=== PATIENT | female | born 1980 | race Caucasian/White ===

== ENCOUNTER 2020-09-23 19:01 | Emergency (ER) | payer MEDICAID ==
--- NOTE | 2020-09-23 19:25 | EDM.PDOC ---
ED HPI GENERAL MEDICAL PROBLEM - General Chief Complaint: Neurological Problem Stated Complaint: SHARP POP IN HEAD THEN BLURRY VISION AND HEADACHE Time Seen by Provider: 09/23/20 19:11 Source of Information: Reports: Patient History Limitations: Reports: No Limitations - History of Present Illness INITIAL COMMENTS - FREE TEXT/NARRATIVE: This is a 40-year-old female. She was eating tonight about 30 minutes ago when she felt a sudden pop and pain in the right posterior parietal area. She developed a headache in that area that seem to expand into her forehead and she developed some blurry vision in the right eye. She also felt like it was neck stiffness and some tingling in her right upper extremity. She denies any weakness of her extremities and she has full function of her hands. She denies any dizziness or vertigo or imbalance when she was walking. The headache itself and in the pain in the right parietal area has eased up but has not gone away. She says her mother has a history of strokes but there is no history of aneurysms. She is on no blood thinners and does not take baby aspirin. She is completely alert and oriented and very expressive in her talking with movement of her arms and hands. She is very attentive with no word searching. She has good sentence structure and is able to express herself adequately. Right Occipital Head Pain Score (Numeric/FACES): 5 - Related Data Allergies Allergy/AdvReac Type Severity Reaction Status Date / Time guaifenesin [From Robitussin] Allergy Hives Verified 09/23/20 19:22 Home Meds: Home Meds Celecoxib [CeleBREX] 200 mg PO DAILY 09/23/20 [History] Escitalopram [Lexapro] 20 mg PO DAILY 09/23/20 [History] Hydroxychloroquine [Plaquenil] 200 mg PO BID 09/23/20 [History] buPROPion HCL [Bupropion Xl] 300 mg PO DAILY 09/23/20 [History] methylPREDNISolone [Methylprednisolone] 4 mg PO DAILY 09/23/20 [History] ED ROS GENERAL - Review of Systems Review Of Systems: See Below Constitutional: Denies: Fever, Chills HEENT: Reports: No Symptoms Respiratory: Denies: Shortness of Breath, Cough Cardiovascular: Denies: Chest Pain Endocrine: Reports: No Symptoms GI/Abdominal: Denies: Nausea, Vomiting : Reports: No Symptoms Musculoskeletal: Reports: Neck Pain Skin: Reports: No Symptoms Neurological: Reports: Headache, Tingling. Denies: Confusion, Dizziness, Syncope, Trouble Speaking, Difficulty Walking, Weakness, Change in Speech Psychiatric: Reports: No Symptoms Hematologic/Lymphatic: Reports: No Symptoms ED EXAM, NEURO - Physical Exam Exam: See Below Exam Limited By: No Limitations General Appearance: Alert, WD/WN, No Apparent Distress, Other (She is minimally anxious) Eye Exam: Bilateral Eye: Normal Inspection, PERRL Ears: Normal External Exam Nose: Normal Inspection Throat/Mouth: Normal Inspection, Normal Lips, Normal Voice, No Airway Compromise Head Exam: Normocephalic, Other (I palpate where her lesser occipital nerve comes out of the base of the skull and where the easiest muscles attach to the skull she has point tenderness right there where she states she has a headache. She does complain of some discomfort up into her forehead but that seems to be easing up some. She also complains of some neck tightness and muscle tightness.) Neck: Supple, Other (Have some tenderness in the trapezius muscle on the right side. But there are no spasms noted and no midline spine pain.) Respiratory/Chest: No Respiratory Distress, Lungs Clear, Normal Breath Sounds Cardiovascular: Regular Rate, Rhythm, No Murmur GI/Abdominal: Soft Neurological: Alert, Normal Mood/Affect, Normal Gait, Oriented x 3. No: Ataxia, Tremor Back Exam: Full Range of Motion Extremities: Normal Inspection, Normal Range of Motion, Other (He moves her right upper extremity with no difficulty. There is no pronator drift and she has good bilateral manager chemistry that are symmetrical. She does complain of some tingling in right arm in general but she still has feeling.) Psychiatric: Anxious Skin Exam: Warm, Dry Course - Vital Signs Last Recorded V/S: Last Vital Signs Temp 97.2 F 09/23/20 19:11 Pulse 91 09/23/20 19:11 Resp 16 09/23/20 19:11 BP 109/64 09/23/20 19:11 Pulse Ox - Orders/Labs/Meds Orders: Active Orders 24 hr Category Date Time Status Head wo Cont [CT] Stat Exams 09/23/20 19:18 Taken Labs: Laboratory Tests 09/23/20 09/23/20 09/23/20 Range/Units 19:37 19:37 19:37 WBC 9.32 (3.98-10.04) K/mm3 RBC 4.73 (3.98-5.22) M/mm3 Hgb 14.8 (11.2-15.7) gm/dl Hct 43.0 (34.1-44.9) % MCV 90.9 (79.4-94.8) fl MCH 31.3 (25.6-32.2) pg MCHC 34.4 (32.2-35.5) g/dl RDW Std Deviation 40.8 (36.4-46.3) fL Plt Count 61 L (182-369) K/mm3 MPV 9.3 L (9.4-12.3) fl Neut % (Auto) 67.0 (34.0-71.1) % Lymph % (Auto) 25.6 (19.3-51.7) % [place] % (Auto) 5.4 (4.7-12.5) % Eos % (Auto) 1.2 (0.7-5.8) Baso % (Auto) 0.4 (0.1-1.2) % Neut # (Auto) 6.24 H (1.56-6.13) K/mm3 Lymph # (Auto) 2.39 (1.18-3.74) K/mm3 [place] # (Auto) 0.50 H (0.24-0.36) K/mm3 Eos # (Auto) 0.11 (0.04-0.36) K/mm3 Baso # (Auto) 0.04 (0.01-0.08) K/mm3 Manual Slide Review Abnormal smear PT 10.3 (9.7-12.0) SECONDS INR 0.96 Sodium 141 (136-145) mEq/L Potassium 3.7 (3.5-5.1) mEq/L Chloride 106 (98-107) mEq/L Carbon Dioxide 24 (21-32) mEq/L Anion Gap 14.7 (5-15) BUN 12 (7-18) mg/dL Creatinine 0.8 (0.55-1.02) mg/dL Est Cr Clr Drug Dosing 96.18 mL/min Estimated GFR (MDRD) > 60 (>60) mL/min BUN/Creatinine Ratio 15.0 (14-18) Glucose 123 H (74-106) mg/dL Calcium 8.9 (8.5-10.1) mg/dL Total Bilirubin 0.3 (0.2-1.0) mg/dL AST 21 (15-37) U/L ALT 33 (14-59) U/L Alkaline Phosphatase 64 (46-116) U/L Total Protein 7.2 (6.4-8.2) g/dl Albumin 3.8 (3.4-5.0) g/dl Globulin 3.4 gm/dL Albumin/Globulin Ratio 1.1 (1-2) - Re-Assessments/Exams Free Text/Narrative Re-Assessment/Exam: 09/23/20 20:33 To the patient regarding her lab work and she is known to have low platelets and today her platelets were 61,000 but she has a history of lupus and she is on steroids. I encouraged her to follow-up with her family doctor to make sure that they are comfortable with the platelets of 61,000. I also spoke to her regarding her CT scan that did not show any acute intracranial pathology. I believe this is coming from her greater occipital nerve irritation. 09/23/20 20:36 The patient tells me that her symptoms are easing up and the pain she was having on the right side of her head is turning more into a mild headache. The tingling in her right arm is improving though she says her arm still feels kind of funny and may be slightly heavy. Overall she says her symptoms are improving. Departure - Departure Time of Disposition: 20:34 Disposition: Home, Self-Care 01 Condition: Good Clinical Impression: Occipital neuralgia of right side, Occipital neuritis - Discharge Information *PRESCRIPTION DRUG MONITORING PROGRAM REVIEWED*: Not Applicable *COPY OF PRESCRIPTION DRUG MONITORING REPORT IN PATIENT JERO: Not Applicable Instructions: Occipital Neuralgia Referrals: Carolina Nazario MD [Primary Care Provider] - Forms: ED Department Discharge Additional Instructions: Compress to help with the irritation, also gentle massage to that area sometimes will ease it up, if you find you are getting a lot of muscle tightness use the muscle relaxer as needed to help with the neck and muscle tightness. Follow-up with your family doctor this week for recheck and if there is a sudden change or worsening of your symptoms return to the ER Sepsis Event Note (ED) - Focused Exam Vital Signs: Vital Signs Temp Pulse Resp BP 09/23/20 19:11 97.2 F 91 16 109/64 - My Orders Last 24 Hours: My Active Orders 09/23/20 19:18 Head wo Cont [CT] Stat - Assessment/Plan Last 24 Hours: My Active Orders 09/23/20 19:18 Head wo Cont [CT] Stat
--- NOTE | 2020-09-24 20:18 | CT ---
Head CT Technique: Multiple axial sections through the brain were obtained. Intravenous contrast was not utilized. Comparison: No prior intracranial imaging is available. Findings: Ventricles along with basal cisterns and sulci over the convexities are within normal limits for the patient's age. No abnormal parenchymal densities are seen. No evidence of intracranial hemorrhage. No midline shift or mass-effect is seen. Bone window settings were reviewed. Visualized mastoid sinuses and paranasal sinuses show nothing acute. No acute calvarial abnormality is appreciated. Impression: 1. Nothing acute is identified on noncontrast head CT exam. Diagnostic code #1 I agree with preliminary report from 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
== END 2020-09-23 20:44 | disposition home or self-care (01) ==
LOC: JD.ED 19:01
DX: M54.81 Occipital neuralgia (principal); M32.9 Systemic lupus erythematosus, unspecified; Z88.8 Allergy status to other drugs, medicaments and biological substances; Z79.899 Other long term (current) drug therapy
CPT/HCPCS: 36415; 70450; 70450-26; 80053; 85025; 85610; 99284; 99284-25

== ENCOUNTER 2020-12-13 18:06 | Emergency (ER) | payer MEDICAID ==
[2020-12-13] MEDS ORDERED: Adenosine 12 MG/4 ML SDV ONE (18:20)
[2020-12-13] MEDS ORDERED: Adenosine 6 MG/2 ML SDV ONE (18:20)
[2020-12-13] MEDS ORDERED: Sodium Chloride 0.9% 1,000 ML ONE (18:21)
[2020-12-13] MEDS ORDERED: Adenosine 6 MG/2 ML SDV IVPUSH ONE ×2 (18:30→18:31)
[2020-12-13] MEDS ORDERED: Sodium Chloride 0.9% 1,000 ML IV ONE (18:30)
--- NOTE | 2020-12-13 18:43 | EDM.PDOC ---
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 She has never had anything like this before. Her chest does feel mildly tight, she feels anxious. Not short of breath. Has not been recently ill. Chest Pain Score (Numeric/FACES): 9 - Related Data Allergies Allergy/AdvReac Type Severity Reaction Status Date / Time guaifenesin [From Robitussin] Allergy Severe Hives Verified 12/13/20 18:37 Home Meds: Home Meds Escitalopram [Lexapro] 20 mg PO DAILY 09/23/20 [History] Hydroxychloroquine [Plaquenil] 200 mg PO BID 09/23/20 [History] buPROPion HCL [Bupropion Xl] 300 mg PO DAILY 09/23/20 [History] methylPREDNISolone [Methylprednisolone] 4 mg PO DAILY 09/23/20 [History] Cholecalciferol (Vitamin D3) [Vitamin D] 5,000 unit PO DAILY 12/13/20 [History] Multivitamin [Multivitamins] 1 each PO DAILY 12/13/20 [History] Past Medical History HEENT History: Reports: Impaired Vision Respiratory History: Reports: Other (See Below) Other Respiratory History: reoccurring cough. Musculoskeletal History: Reports: Arthritis, Back Pain, Chronic Neurological History: Reports: Migraines Psychiatric History: Reports: Anxiety, Depression Immunologic History: Reports: Immunosuppression, Other (See Below) Other Immunologic History: Lupus--sees physician at [facility] in [place]. - Infectious Disease History Infectious Disease History: Reports: Influenza - Past Surgical History HEENT Surgical History: Reports: Oral Surgery Social & Family History - Family History Cardiac: Reports: Other (See Below) Other Cardiac Family History: stroke - Caffeine Use Caffeine Use: Reports: Soda ED ROS GENERAL - Review of Systems Review Of Systems: See Below Constitutional: Denies: Fever, Chills, Diaphoresis HEENT: Reports: No Symptoms Respiratory: Denies: Shortness of Breath, Pleuritic Chest Pain, Cough Cardiovascular: Reports: Lightheadedness, Palpitations. Denies: Chest Pain GI/Abdominal: Denies: Abdominal Pain, Nausea, Vomiting Musculoskeletal: Denies: Neck Pain, Shoulder Pain, Back Pain Skin: Denies: Rash Neurological: Reports: Dizziness ED EXAM, GENERAL - Physical Exam Exam: See Below General Appearance: Alert, Anxious Head: Atraumatic Neck: Supple Respiratory/Chest: No Respiratory Distress, Lungs Clear, Normal Breath Sounds Cardiovascular: Tachycardia (fast, regular heart tones) GI/Abdominal: Non-Tender Extremities: Normal Inspection. No: Pedal Edema, Leg Pain Neurological: Alert, Oriented, No Motor/Sensory Deficits Skin Exam: Warm, Dry, Normal Color #2 Interpretation EKG Date: 12/13/20 Rhythm: Other (SVT, rate 171) [place]: Normal P-Wave: Absent QRS: Normal ST-T: Other (very mild nonspecific t wave changes multiple leads) Course - Vital Signs Last Recorded V/S: Last Vital Signs Temp 97.4 F 12/13/20 18:19 Pulse 91 12/13/20 18:45 Resp 16 12/13/20 18:45 BP 121/83 12/13/20 18:45 Pulse Ox 97 12/13/20 18:45 - Orders/Labs/Meds Orders: Active Orders 24 hr Category Date Time Status EKG 12 Lead [EKG Documentation Completion] [RC] DAILY Care 12/13/20 18:15 Active EKG 12 Lead [EKG Documentation Completion] [RC] ONETIME Care 12/13/20 18:32 Active Sodium Chloride 0.9% [Normal Saline] 1,000 ml Med 12/13/20 18:30 Active IV ONETIME Medication Orders Sodium Chloride (Normal Saline) 1,000 mls @ 999 mls/hr IV ONETIME ONE Stop: 12/13/20 19:30 Last Admin: 12/13/20 18:30 Dose: 999 mls/hr Documented by: KE Labs: Laboratory Tests 12/13/20 12/13/20 Range/Units 18:25 18:25 WBC 11.53 H (3.98-10.04) K/mm3 RBC 4.67 (3.98-5.22) M/mm3 Hgb 14.5 (11.2-15.7) gm/dl Hct 42.2 (34.1-44.9) % MCV 90.4 (79.4-94.8) fl MCH 31.0 (25.6-32.2) pg MCHC 34.4 (32.2-35.5) g/dl RDW Std Deviation 41.2 (36.4-46.3) fL Plt Count 249 D (182-369) K/mm3 MPV 9.6 (9.4-12.3) fl Neut % (Auto) 77.9 H (34.0-71.1) % Lymph % (Auto) 17.3 L (19.3-51.7) % [place] % (Auto) 4.2 L (4.7-12.5) % Eos % (Auto) 0.2 L (0.7-5.8) Baso % (Auto) 0.3 (0.1-1.2) % Neut # (Auto) 8.98 H (1.56-6.13) K/mm3 Lymph # (Auto) 2.00 (1.18-3.74) K/mm3 [place] # (Auto) 0.49 H (0.24-0.36) K/mm3 Eos # (Auto) 0.02 L (0.04-0.36) K/mm3 Baso # (Auto) 0.03 (0.01-0.08) K/mm3 Manual Slide Review Normal smear Sodium 142 (136-145) mEq/L Potassium 3.9 (3.5-5.1) mEq/L Chloride 104 (98-107) mEq/L Carbon Dioxide 22 (21-32) mEq/L Anion Gap 19.9 H (5-15) BUN 11 (7-18) mg/dL Creatinine 1.1 H (0.55-1.02) mg/dL Est Cr Clr Drug Dosing 69.95 mL/min Estimated GFR (MDRD) 56 (>60) mL/min BUN/Creatinine Ratio 10.0 L (14-18) Glucose 138 H (74-106) mg/dL Calcium 9.3 (8.5-10.1) mg/dL Total Bilirubin 0.3 (0.2-1.0) mg/dL AST 14 L (15-37) U/L ALT 32 (14-59) U/L Alkaline Phosphatase 62 (46-116) U/L Total Protein 7.2 (6.4-8.2) g/dl Albumin 3.7 (3.4-5.0) g/dl Globulin 3.5 gm/dL Albumin/Globulin Ratio 1.1 (1-2) Meds: Medications Generic Name Dose Route Start Last Admin Trade Name Carol PRN Reason Stop Dose Admin Sodium Chloride 1,000 mls @ 999 mls/hr 12/13/20 18:30 12/13/20 18:30 Normal Saline IV 12/13/20 19:30 999 mls/hr ONETIME ONE Administration Discontinued Medications Generic Name Dose Route Start Last Admin Trade Name Carol PRN Reason Stop Dose Admin Adenosine Confirm 12/13/20 18:20 12/13/20 18:43 Adenosine 6 Mg/2 Ml Sdv Administered 12/13/20 18:21 Not Given Dose 6 mg .ROUTE .STK-MED ONE Adenosine Confirm 12/13/20 18:20 12/13/20 18:43 Adenosine 12 Mg/4 Ml Sdv Administered 12/13/20 18:21 Not Given Dose 12 mg .ROUTE .STK-MED ONE Adenosine 6 mg 12/13/20 18:30 12/13/20 18:30 Adenosine 6 Mg/2 Ml Sdv IVPUSH 12/13/20 18:31 6 mg NOW ONE Administration Adenosine 12 mg 12/13/20 18:31 12/13/20 18:31 Adenosine 6 Mg/2 Ml Sdv IVPUSH 12/13/20 18:32 12 mg NOW ONE Administration Sodium Chloride Confirm 12/13/20 18:21 12/13/20 18:43 Normal Saline Administered 12/13/20 18:22 Not Given Dose 1,000 mls @ as directed .ROUTE .STK-MED ONE - Re-Assessments/Exams Free Text/Narrative Re-Assessment/Exam: 12/13/20 18:42. tried valsalva, that did slow her rate a bit but did not convert her. Adenosine 6 mg IV did the same. With Adenosine 12 mg IV converted to NSR, Rate 110 that rapidly came down to the low 90's. 12/13/20 18:45. Repeat EKG. NSR, rate 101. Narrow complex, no acute changes. 12/13/20 19:28. Resting comfortably, no reoccurance of sx. labs showed mild dehydration, have given 1 liter of fluid. Discharge instr. as documented. Departure - Departure Time of Disposition: 19:29 Disposition: Home, Self-Care 01 Condition: Fair Clinical Impression: SVT (supraventricular tachycardia) Referrals: Carolina Nazario MD [Primary Care Provider] - Forms: ED Department Discharge Additional Instructions: Rest, drink plenty of water this evening and tomorrow. Continue current medications. See Dr Trevino in 1 to 2 weeks or next available appt. Return to ED as needed. Sepsis Event Note (ED) - Evaluation Sepsis Screening Result: No Definite Risk - Focused Exam Vital Signs: Vital Signs Temp Pulse Resp BP Pulse Ox 12/13/20 18:45 91 16 121/83 97 12/13/20 18:19 97.4 F 176 H 18 138/116 H 100 - My Orders Last 24 Hours: My Active Orders 12/13/20 18:15 EKG 12 Lead [EKG Documentation Completion] [RC] DAILY 12/13/20 18:30 Sodium Chloride 0.9% [Normal Saline] 1,000 ml IV ONETIME 12/13/20 18:32 EKG 12 Lead [EKG Documentation Completion] [RC] ONETIME - Assessment/Plan Last 24 Hours: My Active Orders 12/13/20 18:15 EKG 12 Lead [EKG Documentation Completion] [RC] DAILY 12/13/20 18:30 Sodium Chloride 0.9% [Normal Saline] 1,000 ml IV ONETIME 12/13/20 18:32 EKG 12 Lead [EKG Documentation Completion] [RC] ONETIME
== END 2020-12-13 19:54 | disposition home or self-care (01) ==
LOC: JD.ED 18:06
DX: I47.1 Supraventricular tachycardia (principal); Z88.8 Allergy status to other drugs, medicaments and biological substances; Z79.899 Other long term (current) drug therapy
CPT/HCPCS: 36415; 80053; 85025; 93005; 96374; 99285; J0153; J7030; 93010; 99284